=== PATIENT | male | born 1960 | race Caucasian/White ===

== ENCOUNTER 2019-06-17 20:56 | Inpatient (IN) | payer MEDICAID ==
[~2019-06-17] VITALS: Ht 172.7 cm; Wt 74.2 kg
--- NOTE | 2019-06-17 21:10 | NUR ---
PT TAKES A UNKOWN HTN MED
[2019-06-17] MEDS: PANTOPRAZOLE 80 MG in SODIUM CHLORIDE 0.9% 100 ML IV SCH ×2 (21:13→22:00)
[2019-06-17] MEDS ORDERED: SODIUM CHLORIDE FLUSH 10ML SYR IVF ONE (21:30)
[2019-06-17 21:35] LABS: BASOPHILS # (AUTO) 0.04 x10^3/uL (0-0.1); BASOPHILS % (AUTO) 0 % (0-1); EOSINOPHILS % (AUTO) 0 % (1-7); LYMPHOCYTES # (AUTO) 1.63 x10^3/uL (1-3.4); LYMPHOCYTES % (AUTO) 16 % (22-44); MD NO; MEAN CORPUSCULAR HEMOGLOBIN 28.1 pg (27.5-34.5); MEAN CORPUSCULAR HGB CONC 32.9 g/dL (33.2-36.2); MEAN CORPUSCULAR VOLUME 85.6 fL (81-97); MEAN PLATELET VOLUME 11.3 fL (7.4-10.4); MONOCYTES # (AUTO) 0.65 x10^3/uL (0.2-0.8); MONOCYTES % (AUTO) 7 % (2-9); NEUTROPHILS # (AUTO) 7.67 x10^3/uL (1.8-6.8); NEUTROPHILS % (AUTO) 77 % (42-75); PLATELET COUNT 153 x10^3/uL (130-400); RED BLOOD COUNT 3.54 x10^6/uL (4.38-5.82); RED CELL DISTRIBUTION WIDTH 15.5 % (9.4-14.8)
[2019-06-17 21:46] LABS: ALANINE AMINOTRANSFERASE 39 U/L (12-78); ALBUMIN 2.6 g/dL (3.4-5.0); ANION GAP 6 mmol/L (5-15); CALCIUM 7.4 mg/dL (8.5-10.1); CHLORIDE 116 mmol/L (98-107); CREATININE 0.89 mg/dL (0.7-1.3)
[2019-06-17 21:47] LABS: INTERNATIONAL NORMALIZED RATIO 1.17 (0.93-1.1); PROTHROMBIN TIME 12.4 Seconds (9.6-11.5)
[2019-06-17 21:49] LABS: ALKALINE PHOSPHATASE 55 U/L (45-117); BILIRUBIN,TOTAL 0.4 mg/dL (0.2-1.0); TOTAL PROTEIN 5.7 g/dL (6.4-8.2)
[2019-06-17] MEDS ORDERED: ONDANSETRON 2MG/ML, 2ML IVPush PRN (22:00)
[2019-06-17 22:45] VITALS: BP 99/55
[2019-06-17] MEDS ORDERED: FLU VACC QS2019-20 36MOS UP/PF 0.5 ML IM-VACC ONE (23:45)
[2019-06-17] MEDS ORDERED: [UNRECOGNIZED DRUG - REMARK] (23:49)
[2019-06-17] MEDS ORDERED: [UNRECOGNIZED DRUG - REMARK] (23:49)
[2019-06-17] MEDS ORDERED: [UNRECOGNIZED DRUG - REMARK] (23:49)
[2019-06-18 00:36] VITALS: BP_SYST 106; BP_SYST 172; BP_DIAS 58; BP_DIAS 99
[2019-06-18] MEDS: SODIUM CHLORIDE 0.9% 1,000 ML IV SCH ×4 (00:49→23:11)
[2019-06-18] MEDS: PANTOPRAZOLE 80 MG in SODIUM CHLORIDE 0.9% 100 ML IV SCH ×2 (01:07→08:23)
[2019-06-18] MEDS: morphine SULFATE 10 MG/ML, 1ML IVPush PRN ×4 (03:35→21:20)
[2019-06-18 06:24] LABS: ANION GAP 6 mmol/L (5-15); CALCIUM 7.5 mg/dL (8.5-10.1); CHLORIDE 118 mmol/L (98-107); CREATININE 0.88 mg/dL (0.7-1.3)
[2019-06-18 06:46] LABS: MEAN CORPUSCULAR HGB CONC 32.6 g/dL (33.2-36.2); MEAN CORPUSCULAR VOLUME 85.8 fL (81-97); MEAN PLATELET VOLUME 11.9 fL (7.4-10.4); PLATELET COUNT 96 x10^3/uL (130-400); RED BLOOD COUNT 2.92 x10^6/uL (4.38-5.82); RED CELL DISTRIBUTION WIDTH 15.1 % (9.4-14.8)
[2019-06-18 06:53] LABS: MD MORPH REVIEW ONLY
[2019-06-18 06:54] LABS: ANISOCYTOSIS 1+; BASOPHILS # (AUTO) 0.03 x10^3/uL (0-0.1); BASOPHILS % (AUTO) 1 % (0-1); EOSINOPHILS # (AUTO) 0.03 x10^3/uL (0-0.4); EOSINOPHILS % (AUTO) 0 % (1-7); HYPOCHROMIA 1+; LYMPHOCYTES % (AUTO) 28 % (22-44); MONOCYTES % (AUTO) 10 % (2-9); NEUTROPHILS # (AUTO) 3.69 x10^3/uL (1.8-6.8); NEUTROPHILS % (AUTO) 61 % (42-75)
[2019-06-18 06:55] LABS: <PLATELET ESTIMATE> DECREASED; <PLT MORPHOLOGY> NORMAL PLT MORPH; MICROCYTOSIS 1+
[2019-06-18 07:54] VITALS: BP 94/54
[2019-06-18 12:29] VITALS: BP 91/59
[2019-06-18] MEDS ORDERED: SUCCINYLCHOLINE 20 MG/ML, 10ML ONE (13:56)
[2019-06-18] MEDS ORDERED: CHLORHEXIDINE 15 ML UDC MM ONE (14:00)
[2019-06-18] MEDS: OMEPRAZOLE 20 MG CAPSULE.DR PO SCH (16:22)
[2019-06-18] MEDS: SUCRALFATE 1 GM/10 ML UDC PO SCH (17:22)
[2019-06-18 19:42] VITALS: BP 111/65
[2019-06-19 01:31] VITALS: BP 119/70
[2019-06-19] MEDS: morphine SULFATE 10 MG/ML, 1ML IVPush PRN ×6 (01:54→21:11)
[2019-06-19] MEDS: OMEPRAZOLE 20 MG CAPSULE.DR PO SCH (05:06)
[2019-06-19] MEDS: SODIUM CHLORIDE 0.9% 1,000 ML IV SCH ×3 (05:15→19:31)
[2019-06-19 06:24] LABS: ALBUMIN 2.5 g/dL (3.4-5.0); ANION GAP 5 mmol/L (5-15); CALCIUM 7.6 mg/dL (8.5-10.1); CHLORIDE 116 mmol/L (98-107)
[2019-06-19 06:25] LABS: MEAN CORPUSCULAR HEMOGLOBIN 28.4 pg (27.5-34.5); MEAN CORPUSCULAR HGB CONC 32.9 g/dL (33.2-36.2); MEAN CORPUSCULAR VOLUME 86.3 fL (81-97); MEAN PLATELET VOLUME 12.4 fL (7.4-10.4); PLATELET COUNT 96 x10^3/uL (130-400); RED BLOOD COUNT 3.07 x10^6/uL (4.38-5.82); RED CELL DISTRIBUTION WIDTH 15.9 % (9.4-14.8)
[2019-06-19 06:29] LABS: ALANINE AMINOTRANSFERASE 45 U/L (12-78); ALKALINE PHOSPHATASE 56 U/L (45-117); BILIRUBIN,TOTAL 0.5 mg/dL (0.2-1.0); CREATININE 1.03 mg/dL (0.7-1.3); TOTAL PROTEIN 5.8 g/dL (6.4-8.2)
[2019-06-19 07:07] LABS: ANISOCYTOSIS 1+; BASOPHILS # (AUTO) 0.02 x10^3/uL (0-0.1); BASOPHILS % (AUTO) 1 % (0-1); EOSINOPHILS # (AUTO) 0.08 x10^3/uL (0-0.4); EOSINOPHILS % (AUTO) 2 % (1-7); LYMPHOCYTES # (AUTO) 1.07 x10^3/uL (1-3.4); LYMPHOCYTES % (AUTO) 24 % (22-44); MD MORPH REVIEW ONLY; MONOCYTES # (AUTO) 0.39 x10^3/uL (0.2-0.8); MONOCYTES % (AUTO) 9 % (2-9); NEUTROPHILS # (AUTO) 2.89 x10^3/uL (1.8-6.8); NEUTROPHILS % (AUTO) 65 % (42-75)
[2019-06-19 07:08] LABS: HYPOCHROMIA 1+; OVALOCYTES 1+; POLYCHROMASIA 1+
[2019-06-19 07:09] LABS: <PLATELET ESTIMATE> DECREASED; LARGE PLATELETS 1+
[2019-06-19 07:46] VITALS: BP 132/75
[2019-06-19] MEDS: SUCRALFATE 1 GM/10 ML UDC PO SCH ×3 (09:43→17:46)
[2019-06-19 13:53] VITALS: BP 144/84
[2019-06-19 19:02] VITALS: BP 120/75
[2019-06-20] MEDS: morphine SULFATE 10 MG/ML, 1ML IVPush PRN ×4 (01:01→22:59)
[2019-06-20 02:27] VITALS: BP 115/73
[2019-06-20] MEDS: SODIUM CHLORIDE 0.9% 1,000 ML IV SCH ×3 (04:34→17:43)
[2019-06-20 05:23] LABS: ALBUMIN 2.1 g/dL (3.4-5.0); ANION GAP 5 mmol/L (5-15); CALCIUM 7.5 mg/dL (8.5-10.1); CHLORIDE 111 mmol/L (98-107)
[2019-06-20 05:27] LABS: ALANINE AMINOTRANSFERASE 34 U/L (12-78); ALKALINE PHOSPHATASE 55 U/L (45-117); BILIRUBIN,TOTAL 0.7 mg/dL (0.2-1.0); CREATININE 0.83 mg/dL (0.7-1.3); TOTAL PROTEIN 5.4 g/dL (6.4-8.2)
[2019-06-20 05:44] LABS: MEAN CORPUSCULAR HEMOGLOBIN 28.1 pg (27.5-34.5); MEAN CORPUSCULAR HGB CONC 32.6 g/dL (33.2-36.2); MEAN CORPUSCULAR VOLUME 86.1 fL (81-97); MEAN PLATELET VOLUME 12.1 fL (7.4-10.4); PLATELET COUNT 80 x10^3/uL (130-400); RED BLOOD COUNT 2.68 x10^6/uL (4.38-5.82); RED CELL DISTRIBUTION WIDTH 15.7 % (9.4-14.8)
[2019-06-20] MEDS: OMEPRAZOLE 20 MG CAPSULE.DR PO SCH (05:59)
[2019-06-20 06:37] LABS: BASOPHILS # (AUTO) 0.02 x10^3/uL (0-0.1); BASOPHILS % (AUTO) 0 % (0-1); EOSINOPHILS # (AUTO) 0.06 x10^3/uL (0-0.4); EOSINOPHILS % (AUTO) 1 % (1-7); LYMPHOCYTES % (AUTO) 18 % (22-44); MD SCAN; MONOCYTES # (AUTO) 0.52 x10^3/uL (0.2-0.8); MONOCYTES % (AUTO) 12 % (2-9); NEUTROPHILS # (AUTO) 3.01 x10^3/uL (1.8-6.8); NEUTROPHILS % (AUTO) 68 % (42-75)
[2019-06-20 07:26] VITALS: BP 116/71
[2019-06-20] MEDS: LISINOPRIL 20 MG TABLET PO SCH (07:44)
[2019-06-20] MEDS: SUCRALFATE 1 GM/10 ML UDC PO SCH ×3 (07:44→16:41)
[2019-06-20] MEDS ORDERED: IRON SUCROSE COMPLEX 100MG/5ML IV SCH (10:00)
[2019-06-20] MEDS ORDERED: POTASSIUM CHLORIDE 20 MEQ TAB.ER.PRT PO ONE (11:00)
[2019-06-20 13:46] VITALS: BP 125/77
[2019-06-20] MEDS: FERROUS SULFATE 325 MG TABLET PO SCH (16:41)
[2019-06-20 19:40] VITALS: BP 119/74
[2019-06-21 01:18] VITALS: BP 121/76
[2019-06-21] MEDS: SODIUM CHLORIDE 0.9% 1,000 ML IV SCH ×3 (01:45→14:10)
[2019-06-21] MEDS: OMEPRAZOLE 20 MG CAPSULE.DR PO SCH (05:34)
[2019-06-21] MEDS: morphine SULFATE 10 MG/ML, 1ML IVPush PRN (05:39)
[2019-06-21 07:15] VITALS: BP 112/73
[2019-06-21] MEDS: SUCRALFATE 1 GM/10 ML UDC PO SCH ×3 (08:33→15:50)
[2019-06-21] MEDS: LISINOPRIL 20 MG TABLET PO SCH (08:34)
[2019-06-21] MEDS: FERROUS SULFATE 325 MG TABLET PO SCH ×2 (08:34→15:49)
[2019-06-21] MEDS ORDERED: POTASSIUM CHLORIDE 20 MEQ TAB.ER.PRT PO ONE (09:00)
[2019-06-21] MEDS ORDERED: FERR-51 PO (12:46)
[2019-06-21] MEDS ORDERED: OMEP-110 PO (12:46)
[2019-06-21] MEDS ORDERED: LISI-170 PO (12:46)
[2019-06-21] MEDS ORDERED: SUCR1ORA5 PO (12:46)
[2019-06-21 13:59] VITALS: BP 114/70
[2019-06-22] MEDS ORDERED: IRON SUCROSE COMPLEX 100MG/5ML IV SCH (10:00)
[2019-06-23 14:25] LABS: ANA SCREEN NEGATIVE (Negative)
== END 2019-06-21 19:50 ==
LOC: ED 21:48 → EDIP 22:27 → 3N 22:42
PROVIDERS: ADMIT Internal Medicine; ATTEND Internal Medicine Infectious Disease
PROC: 0DB68ZX Excision of Stomach, Via Natural or Artificial Opening Endoscopic, Diagnostic (ICD-10-PCS; 2019-06-18)
PROC: 06L38CZ Occlusion of Esophageal Vein with Extraluminal Device, Via Natural or Artificial Opening Endoscopic (ICD-10-PCS; principal; 2019-06-18 13:45)
DX: K74.60 Unspecified cirrhosis of liver (principal); I85.11 Secondary esophageal varices with bleeding; K29.71 Gastritis, unspecified, with bleeding; D62 Acute posthemorrhagic anemia; I10 Essential (primary) hypertension; Z79.899 Other long term (current) drug therapy; R10.12 Left upper quadrant pain; M79.642 Pain in left hand; Z87.11 Personal history of peptic ulcer disease; B19.20 Unspecified viral hepatitis C without hepatic coma
CPT/HCPCS: 36415; 76700; 80048; 80053; 82105; 82728; 83516; 83690; 85014; 85018; 85025; 85610; 85730; 86038; 86704; 86803; 86850; 86900; 87340; 87521; 87806; 88305; 88342; 90686; G0378; J1756; C9113; G0475; J0330; J2270; J7030